=== PATIENT | female | born 1955 | race Caucasian/White ===

== ENCOUNTER → 2019-12-29 09:18 | Outpatient (CLI) | payer OTHER ==
[2015-09-24 10:48] VITALS: BMI 38.3
[2019-12-29 10:22] LABS: ALBUMIN 3.4 g/dL (3.4-5.0); BILIRUBIN - DIRECT 0.14 mg/dL (0.00-0.30); BILIRUBIN - INDIRECT 0.41 mg/dL (0.00-1.00); BILIRUBIN - TOTAL 0.55 mg/dL (0.2-1.3); PROTEIN - SERUM 7.2 g/dL (6.4-8.2)
== END | disposition home or self-care (01) ==
LOC: D.LAB 09:18 → D.US 10:30
PROVIDERS: ATTEND Internal Medicine Gastroenterology
DX: K76.0 Fatty (change of) liver, not elsewhere classified (principal)